=== PATIENT | female | born 1960 | race Caucasian/White ===

== ENCOUNTER → 2018-08-24 | Emergency (ER) | payer MEDICAID ==
[~2018-08-24] MED LIST: ALLO100T PO; AMLO10TA6 PO; ARIP5TAB19 PO; ASPI-1005 PO; BUPR300T54 PO; CLON0.5T12 PO; ESOM40CA54 PO; FERR324T4 PO; IBUP-2071 PO; ISOS20TA7 PO; KETOROLAC TROMETHAMINE 30MG/ML ONE; LEVO150T11 PO; LORA10TA7 PO; MECL-111 PO; MELO-106 PO; METO5TAB7 PO; NITR0.4T50 SL; PREG100C PO; ROPI1TAB11 PO; SERT50TA12 PO; SIMV40TA5 PO; TORS5TAB12 PO; TRAM50TA4 PO; TRAZ-187 PO
== END ==
LOC: EDH 22:49 → EDHIP 22:50 → UNDOADMIN 22:50 → UNDODISIN 23:59
DX: S80.02XA Contusion of left knee, initial encounter (principal); S80.01XA Contusion of right knee, initial encounter; S70.12XA Contusion of left thigh, initial encounter; S70.01XA Contusion of right hip, initial encounter; S09.90XA Unspecified injury of head, initial encounter; E11.9 Type 2 diabetes mellitus without complications; E78.5 Hyperlipidemia, unspecified; I10 Essential (primary) hypertension; M19.90 Unspecified osteoarthritis, unspecified site; F32.9 Major depressive disorder, single episode, unspecified; Z90.49 Acquired absence of other specified parts of digestive tract; Z85.850 Personal history of malignant neoplasm of thyroid; W07.XXXA Fall from chair, initial encounter; Y93.E1 Activity, personal bathing and showering; Y92.89 Other specified places as the place of occurrence of the external cause; Y99.8 Other external cause status
CPT/HCPCS: 70450; 73502; 73562; 96372; G0378; J1885

== ENCOUNTER 2018-10-10 18:24 | Inpatient (IN) | payer MEDICAID ==
[~2018-10-10] VITALS: Ht 152.4 cm; Wt 96.3 kg
[~2018-10-10 18:24] MED LIST changes: -AMLO10TA6 PO; +AMLO10TA7 PO; -KETOROLAC TROMETHAMINE 30MG/ML ONE
[2018-10-10 18:55] LABS: BASOPHILS % (AUTO) 1.3 % (0.0-5.0); EOSINOPHILS % (AUTO) 3.3 % (0.0-8.0); HEMATOCRIT 30.7 % (36-48); LYMPHOCYTES % (AUTO) 24.6 % (21.0-51.0); MEAN CORPUSCULAR HEMOGLOBIN 30.6 pg (27.0-33.0); MEAN CORPUSCULAR HGB CONC 33.3 g/dL (32.0-36.0); MEAN CORPUSCULAR VOLUME 91.7 fL (79-99); MONOCYTES % (AUTO) 5.3 % (3.0-13.0); NEUTROPHILS % (AUTO) 65.5 % (40.0-77.0); PLATELET COUNT (AUTO) 274 K/uL (130-400); RED BLOOD CELL COUNT(AUTO) 3.35 MIL/uL (4.00-5.50); RED CELL DISTRIBUTION WIDTH 13.7 % (11.0-15.5); WHITE BLOOD COUNT (AUTO) 12.1 K/uL (4.8-10.8)
[2018-10-10 19:06] LABS: CREATININE 4.2 mg/dL (0.5-1.5); POTASSIUM 5.9 mmol/L (3.5-5.1)
[2018-10-10 19:08] LABS: INR 0.95 (0.85-1.15)
[2018-10-10 19:16] LABS: ALBUMIN 3.1 g/dL (3.5-5.0); BILIRUBIN,TOTAL 0.1 mg/dL (0.2-1.0); TOTAL PROTEIN, SERUM 6.8 g/dL (6.0-8.3)
[2018-10-10 19:22] LABS: B-TYPE NATRIURETIC PEPTIDE 509 pg/mL (0-100)
[2018-10-10] MEDS ORDERED: SODIUM CHLORIDE 0.9% 1000ML 1,000 ML IV ONE (19:28)
[2018-10-10 19:39] LABS: THYROID STIMULATING HORMONE 13.36 uIU/mL (0.36-3.74)
[2018-10-10 20:32] LABS: APPEARANCE,URINE Clear (CLEAR); BILIRUBIN,URINE Negative (NEGATIVE); COLOR,URINE Dark Yellow (YELLOW); GLUCOSE, URINE (UA) Negative (NEGATIVE); KETONES,URINE Trace mg/dL (NEGATIVE); LEUKOCYTE ESTERASE ,URINE Negative (NEGATIVE); NITRATE,URINE Negative (NEGATIVE); OCCULT BLOOD,URINE Negative (NEGATIVE); PROTEIN,URINE Negative (NEGATIVE)
[2018-10-10] MEDS ORDERED: ATROPINE SULFATE 0.1 MG/ML 10 ML SYG IVP ONE (20:39)
[2018-10-10] MEDS ORDERED: CALCIUM GLUCONATE 1 GM/10 ML VIAL IV ONE (20:39)
[2018-10-11 06:17] LABS: EOSINOPHILS % (AUTO) 3.2 % (0.0-8.0); HEMATOCRIT 32.2 % (36-48); MEAN CORPUSCULAR HEMOGLOBIN 30.4 pg (27.0-33.0); MEAN CORPUSCULAR HGB CONC 32.9 g/dL (32.0-36.0); MEAN CORPUSCULAR VOLUME 92.3 fL (79-99); MONOCYTES % (AUTO) 5.9 % (3.0-13.0); NEUTROPHILS % (AUTO) 65.9 % (40.0-77.0); PLATELET COUNT (AUTO) 249 K/uL (130-400); RED BLOOD CELL COUNT(AUTO) 3.49 MIL/uL (4.00-5.50); RED CELL DISTRIBUTION WIDTH 13.7 % (11.0-15.5); WHITE BLOOD COUNT (AUTO) 11.9 K/uL (4.8-10.8)
[2018-10-11 06:30] LABS: CREATININE 4.6 mg/dL (0.5-1.5)
[2018-10-11 06:35] LABS: POTASSIUM 6.4 mmol/L (3.5-5.1)
[2018-10-11] MEDS ORDERED: HYDROCHLOROTHIAZIDE 25 MG TABLET ONE (09:44)
[2018-10-11] MEDS ORDERED: FUROSEMIDE 10 MG/ML 4ML VIAL ONE (09:44)
[2018-10-11] MEDS ORDERED: HYDROCHLOROTHIAZIDE 25 MG TABLET PO SCH (09:45)
[2018-10-11] MEDS ORDERED: FUROSEMIDE 10 MG/ML 4ML VIAL IV SCH (09:45)
[2018-10-11] MEDS ORDERED: SODIUM CHLORIDE 0.9% 1000ML 1,000 ML IV ONE (20:23)
[2018-10-11] MEDS: SIMVASTATIN 20 MG TABLET PO SCH (21:00)
[2018-10-12] VITALS (7 sets, daily range): BP systolic 139–168; BP diastolic 60–139
[2018-10-12] MEDS: SODIUM CHLORIDE 0.9% 1000ML 1,000 ML IV SCH ×3 (01:56→13:03)
[2018-10-12] MEDS ORDERED: XALA2.5OS OD (02:52)
[2018-10-12] MEDS ORDERED: LATA7.5D OP (02:52)
[2018-10-12] MEDS ORDERED: AMOX-429 PO (02:52)
[2018-10-12] MEDS ORDERED: CHOL200059 PO (02:52)
[2018-10-12] MEDS ORDERED: FERR-82 PO (02:52)
[2018-10-12] MEDS ORDERED: METF-446 PO (02:52)
[2018-10-12] MEDS ORDERED: TORS20TA4 PO (02:52)
[2018-10-12] MEDS ORDERED: BRIM5DRO OP (02:52)
[2018-10-12] MEDS ORDERED: DIPH1TAB24 PO (02:52)
[2018-10-12] MEDS ORDERED: ARIP10TA16 PO (02:52)
[2018-10-12 04:00] LABS: HEMATOCRIT 33.4 % (36-48); MEAN CORPUSCULAR HEMOGLOBIN 30.8 pg (27.0-33.0); MEAN CORPUSCULAR HGB CONC 34.4 g/dL (32.0-36.0); MEAN CORPUSCULAR VOLUME 89.5 fL (79-99); PLATELET COUNT (AUTO) 253 K/uL (130-400); RED BLOOD CELL COUNT(AUTO) 3.74 MIL/uL (4.00-5.50); RED CELL DISTRIBUTION WIDTH 13.2 % (11.0-15.5)
[2018-10-12 04:16] LABS: CREATININE 2.3 mg/dL (0.5-1.5); PHOSPHORUS 4.7 mg/dL (2.5-4.9); POTASSIUM 4.2 mmol/L (3.5-5.1)
[2018-10-12 04:34] LABS: BASOPHILS % (MANUAL) 1 % (0-2); EOSINOPHILS % (MANUAL) 4 % (1-6); LYMPHOCYTES % (MANUAL) 17 % (22-44); MAN.DIFF COMMENT-IMPRESSION MANUAL DIFFERENTIAL; MONOCYTES % (MANUAL) 5 % (2-9); PLATELET MORPHOLOGY COMMENT ADEQUATE; REACTIVE LYMPHOCYTES 2 % (0-0); SEGMENTED NEUTROPHILS % 71 % (40-70)
[2018-10-12] MEDS: LEVOTHYROXINE 150 MCG TABLET PO SCH (06:41)
[2018-10-12] MEDS: PANTOPRAZOLE SODIUM 40 MG TABLET.DR PO SCH (06:41)
[2018-10-12] MEDS: ASPIRIN 81MG TAB.CHEW PO SCH (08:04)
[2018-10-12] MEDS: SERTRALINE HCL 50 MG TABLET PO SCH (08:05)
[2018-10-12] MEDS: ALLOPURINOL 100 MG TABLET PO SCH (08:05)
[2018-10-12 14:51] LABS: APPEARANCE,URINE CLOUDY (CLEAR); BILIRUBIN,URINE NEGATIVE (NEGATIVE); COLOR,URINE YELLOW (YELLOW); GLUCOSE, URINE (UA) NEGATIVE (NEGATIVE); KETONES,URINE 5 mg/dL (NEGATIVE); LEUKOCYTE ESTERASE ,URINE MODERATE (NEGATIVE); NITRATE,URINE POSITIVE (NEGATIVE); OCCULT BLOOD,URINE MODERATE (NEGATIVE); PROTEIN,URINE TRACE (NEGATIVE); UROBILINOGEN,URINE 0.2 mg/dL (0.2-1.0)
[2018-10-12 16:00] LABS: BACTERIA,URINE Few /HPF (None Seen); SQUAMOUS EPITHELIAL CELL,UR Rare /HPF (0-2); WBC,URINE 26-50 /HPF (0-1)
[2018-10-12] MEDS: SIMVASTATIN 20 MG TABLET PO SCH (21:24)
[2018-10-12] MEDS: INSULIN HUMULIN R 100 UNIT/ML 3ML SQ SCH (21:28)
[2018-10-13 04:00] VITALS: BP 170/94
[2018-10-13 04:35] LABS: HEMATOCRIT 37.1 % (36-48); MEAN CORPUSCULAR HEMOGLOBIN 30.6 pg (27.0-33.0); MEAN CORPUSCULAR HGB CONC 34.2 g/dL (32.0-36.0); MEAN CORPUSCULAR VOLUME 89.4 fL (79-99); NUCLEATED RED BLOOD CELLS 0.1 % (0.0-0.19); PLATELET COUNT (AUTO) 287 K/uL (130-400); RED BLOOD CELL COUNT(AUTO) 4.15 MIL/uL (4.00-5.50); RED CELL DISTRIBUTION WIDTH 13.4 % (11.0-15.5); WHITE BLOOD COUNT (AUTO) 10.5 K/uL (4.8-10.8)
[2018-10-13 05:03] LABS: CREATININE 1.4 mg/dL (0.5-1.5); POTASSIUM 3.5 mmol/L (3.5-5.1); THYROID STIMULATING HORMONE 10.17 uIU/mL (0.36-3.74); URIC ACID 6.3 mg/dL (2.6-7.2)
[2018-10-13] MEDS: LEVOTHYROXINE 150 MCG TABLET PO SCH (06:06)
[2018-10-13] MEDS: PANTOPRAZOLE SODIUM 40 MG TABLET.DR PO SCH (06:06)
[2018-10-13 07:00] VITALS: BP 156/73
[2018-10-13] MEDS: INSULIN HUMULIN R 100 UNIT/ML 3ML SQ SCH ×4 (07:04→21:00)
[2018-10-13] MEDS: SERTRALINE HCL 50 MG TABLET PO SCH (08:06)
[2018-10-13] MEDS: ASPIRIN 81MG TAB.CHEW PO SCH (08:07)
[2018-10-13] MEDS: ALLOPURINOL 100 MG TABLET PO SCH (08:07)
[2018-10-13 11:00] VITALS: BP 168/71
[2018-10-13 16:00] VITALS: BP 184/71
[2018-10-13 20:06] VITALS: BP 162/78
[2018-10-13] MEDS: SIMVASTATIN 20 MG TABLET PO SCH (20:36)
[2018-10-13] MEDS ORDERED: ROPINIROLE HCL 1 MG TABLET PO SCH (21:00)
[2018-10-13 23:48] VITALS: BP 164/61
[2018-10-14 03:39] VITALS: BP 161/73
[2018-10-14 04:12] LABS: HEMATOCRIT 38.3 % (36-48); MEAN CORPUSCULAR HEMOGLOBIN 30.2 pg (27.0-33.0); MEAN CORPUSCULAR HGB CONC 33.9 g/dL (32.0-36.0); MEAN CORPUSCULAR VOLUME 89.2 fL (79-99); PLATELET COUNT (AUTO) 321 K/uL (130-400); RED CELL DISTRIBUTION WIDTH 13.5 % (11.0-15.5); WHITE BLOOD COUNT (AUTO) 13.4 K/uL (4.8-10.8)
[2018-10-14 04:18] LABS: CREATININE 1.3 mg/dL (0.5-1.5); POTASSIUM 3.7 mmol/L (3.5-5.1)
[2018-10-14] MEDS: INSULIN HUMULIN R 100 UNIT/ML 3ML SQ SCH ×2 (06:20→12:22)
[2018-10-14] MEDS: LEVOTHYROXINE 150 MCG TABLET PO SCH (06:20)
[2018-10-14] MEDS: PANTOPRAZOLE SODIUM 40 MG TABLET.DR PO SCH (06:20)
[2018-10-14 07:00] VITALS: BP 166/77
[2018-10-14] MEDS: ASPIRIN 81MG TAB.CHEW PO SCH (08:54)
[2018-10-14] MEDS: SERTRALINE HCL 50 MG TABLET PO SCH (08:54)
[2018-10-14] MEDS: ALLOPURINOL 100 MG TABLET PO SCH (08:54)
[2018-10-14] MEDS ORDERED: BUPROPION HCL 150 MG TABLET.SA PO SCH (09:00)
[2018-10-14] MEDS ORDERED: FERROUS SULFATE 325 MG TABLET.DR PO SCH (09:00)
[2018-10-14] MEDS ORDERED: AMLODIPINE BESYLATE 5 MG TAB PO SCH (09:00)
[2018-10-14] MEDS ORDERED: ISOSORBIDE MONONITRATE 20 MG TABLET PO SCH (09:00)
[2018-10-14 11:00] VITALS: BP 131/57
== END 2018-10-14 14:39 | disposition home or self-care (01) | DRG 469 ==
LOC: EDH 18:24 → EDHIP 18:25 → 2DH 10-12 01:32
PROVIDERS: ADMIT Internal Medicine Nephrology; ATTEND Internal Medicine Nephrology
DX: N17.9 Acute kidney failure, unspecified (principal); E11.22 Type 2 diabetes mellitus with diabetic chronic kidney disease; E86.9 Volume depletion, unspecified; I12.9 Hypertensive chronic kidney disease with stage 1 through stage 4 chronic kidney disease, or unspecified chronic kidney disease; E87.5 Hyperkalemia; N18.9 Chronic kidney disease, unspecified; D64.9 Anemia, unspecified; E03.9 Hypothyroidism, unspecified; E78.5 Hyperlipidemia, unspecified; F32.9 Major depressive disorder, single episode, unspecified; F41.9 Anxiety disorder, unspecified; I25.10 Atherosclerotic heart disease of native coronary artery without angina pectoris
CPT/HCPCS: 36415; 70450; 71045; 76770; 80048; 80053; 81001; 81003; 82550; 82948; 83735; 83874; 83880; 84100; 84443; 84484; 84550; 85025; 85027; 85610; 85730; 93005; G0378; J0461; J0610; J1815; J1940; J7030

== ENCOUNTER 2019-05-24 09:58 | Emergency (ER) | payer MEDICAID ==
[~2019-05-24 09:58] MED LIST changes: +AMOX-429 PO; +ARIP10TA16 PO; -ARIP5TAB19 PO; +BRIM5DRO OP; +CHOL200059 PO; -CLON0.5T12 PO; +CLON0.5T4 PO; +DIPH1TAB24 PO; +FERR-82 PO; -FERR324T4 PO; -IBUP-2071 PO; +LATA7.5D OP; -MELO-106 PO; +METF-446 PO; -METO5TAB7 PO; -PREG100C PO; +SIMV-46 PO; -SIMV40TA5 PO; +TORS20TA4 PO; -TORS5TAB12 PO; +XALA2.5OS OD
[2019-05-24 11:00] LABS: CARBON DIOXIDE 27 mmol/L (21-32); CHLORIDE 103 mmol/L (101-111); CREATININE 1.4 mg/dL (0.5-1.5); GLOMERULAR FILTR. RATE CALC 41 mL/min (>60); GLUCOSE,RANDOM 150 mg/dL (70-105); POTASSIUM 4.6 mmol/L (3.5-5.1); SODIUM SERUM 139 mmol/L (136-145); UREA NITROGEN, BLOOD 28 mg/dL (7-18)
[2019-05-24 11:02] LABS: BASOPHILS % (AUTO) 0.8 % (0.0-5.0); EOSINOPHILS % (AUTO) 3.5 % (0.0-8.0); LYMPHOCYTES % (AUTO) 18.4 % (21.0-51.0); MEAN CORPUSCULAR HEMOGLOBIN 30.8 pg (27.0-33.0); MEAN CORPUSCULAR HGB CONC 34.2 g/dL (32.0-36.0); MEAN CORPUSCULAR VOLUME 90.1 fL (79-99); MONOCYTES % (AUTO) 6.2 % (3.0-13.0); NEUTROPHILS % (AUTO) 71.1 % (40.0-77.0); PLATELET COUNT (AUTO) 333 K/uL (130-400); RED BLOOD CELL COUNT(AUTO) 3.55 MIL/uL (4.00-5.50); RED CELL DISTRIBUTION WIDTH 13.2 % (11.0-15.5); WHITE BLOOD COUNT (AUTO) 11.1 K/uL (4.8-10.8)
[2019-05-24 11:05] LABS: ALANINE AMINOTRANSFERASE 17 U/L (12-78); ASPARTATE AMINOTRANSFERASE 13 U/L (10-37); BILIRUBIN,DIRECT < 0.1 mg/dL (0.0-0.3); BILIRUBIN,TOTAL 0.2 mg/dL (0.2-1.0); CREATINE KINASE, TOTAL 40 U/L (21-232)
[2019-05-24 11:16] LABS: B-TYPE NATRIURETIC PEPTIDE 45 pg/mL (0-100)
== END 2019-05-24 12:54 | disposition home or self-care (01) ==
LOC: EDH 09:58
DX: R22.31 Localized swelling, mass and lump, right upper limb (principal); M19.90 Unspecified osteoarthritis, unspecified site; E11.9 Type 2 diabetes mellitus without complications; E78.5 Hyperlipidemia, unspecified; F32.9 Major depressive disorder, single episode, unspecified; I10 Essential (primary) hypertension; F41.9 Anxiety disorder, unspecified; Z85.850 Personal history of malignant neoplasm of thyroid
CPT/HCPCS: 36415; 71046; 73130; 80048; 80076; 82550; 83880; 84145; 85025; 93971

== ENCOUNTER → 2019-07-22 | Outpatient (CLI) | payer MEDICAID | END | disposition home or self-care (01) | LOC: SLP 19:07 | DX: G47.33 Obstructive sleep apnea (adult) (pediatric) (principal); I10 Essential (primary) hypertension; E11.9 Type 2 diabetes mellitus without complications; E66.9 Obesity, unspecified; F32.9 Major depressive disorder, single episode, unspecified; F41.9 Anxiety disorder, unspecified; Z68.41 Body mass index [BMI] 40.0-44.9, adult | CPT/HCPCS: 95810 ==

== ENCOUNTER → 2019-08-07 | Outpatient (CLI) | payer MEDICAID | END | disposition home or self-care (01) | LOC: SLP 20:29 | DX: G47.33 Obstructive sleep apnea (adult) (pediatric) (principal); I10 Essential (primary) hypertension; E11.9 Type 2 diabetes mellitus without complications; F41.9 Anxiety disorder, unspecified; F32.9 Major depressive disorder, single episode, unspecified; E66.9 Obesity, unspecified; Z68.41 Body mass index [BMI] 40.0-44.9, adult | CPT/HCPCS: 95811 ==

== ENCOUNTER 2019-11-29 09:16 | Inpatient (IN) | payer MEDICAID ==
[~2019-11-29] VITALS: Ht 152.4 cm; Wt 95.2 kg
[~2019-11-29 09:16] MED LIST changes: +AMLO-258 PO; -AMLO10TA7 PO; +BUPR-317 PO; -BUPR300T54 PO; -MECL-111 PO; +MECL-160 PO; -ROPI1TAB11 PO; +ROPI1TAB13 PO
[2019-11-29 09:47] LABS: BASOPHILS % (AUTO) 0.3 % (0.0-5.0); HEMATOCRIT 32.3 % (36-48); LYMPHOCYTES % (AUTO) 16.5 % (21.0-51.0); MEAN CORPUSCULAR VOLUME 96.7 fL (79-99); MONOCYTES % (AUTO) 7.9 % (3.0-13.0); NEUTROPHILS % (AUTO) 73.2 % (40.0-77.0); NUCLEATED RED BLOOD CELLS 0.1 % (0.0-0.19); PLATELET COUNT (AUTO) 368 K/uL (130-400); RED BLOOD CELL COUNT(AUTO) 3.34 MIL/uL (4.00-5.50); RED CELL DISTRIBUTION WIDTH 14.5 % (11.0-15.5); WHITE BLOOD COUNT (AUTO) 17.5 K/uL (4.8-10.8)
[2019-11-29 09:55] LABS: INR 0.92 (0.85-1.15); PARTIAL THROMBOPLASTIN TIME 20.6 SEC (26.3-35.5)
[2019-11-29 10:04] LABS: ALBUMIN 3.3 g/dL (3.5-5.0); BILIRUBIN,TOTAL 0.2 mg/dL (0.2-1.0); CREATININE 4.7 mg/dL (0.5-1.5); TOTAL PROTEIN, SERUM 7.2 g/dL (6.0-8.3)
[2019-11-29 10:05] LABS: POTASSIUM 6.6 mmol/L (3.5-5.1)
[2019-11-29 10:18] LABS: B-TYPE NATRIURETIC PEPTIDE 910 pg/mL (0-100)
[2019-11-29 10:25] LABS: RAPID GROUP A STREP NEGATIVE (NEGATIVE)
[2019-11-29] MEDS ORDERED: IPRATROPIUM/ALBUTEROL SULFATE 3 ML SOLUTION IH ONE ×2 (10:47→10:54)
[2019-11-29] MEDS ORDERED: FUROSEMIDE 10 MG/ML 4ML VIAL ONE (10:52)
[2019-11-29] MEDS ORDERED: DEXTROSE 50%-WATER 50 ML DISP.SYRIN IV ONE (11:38)
[2019-11-29] MEDS ORDERED: INSULIN HUMULIN R 100 UNIT/ML 3ML ONE (11:38)
[2019-11-29] MEDS ORDERED: SODIUM POLYSTYRENE SULFONATE 15 GM/60 ML ML ONE ×2 (13:25)
[2019-11-29 13:35] LABS: APPEARANCE,URINE Turbid (CLEAR); BILIRUBIN,URINE Negative (NEGATIVE); COLOR,URINE Yellow (YELLOW); GLUCOSE, URINE (UA) Negative (NEGATIVE); KETONES,URINE Negative (NEGATIVE); LEUKOCYTE ESTERASE ,URINE Trace (NEGATIVE); NITRATE,URINE Negative (NEGATIVE); OCCULT BLOOD,URINE Moderate (NEGATIVE); PROTEIN,URINE 300 mg/dL (NEGATIVE)
[2019-11-29 14:08] LABS: AMORPHOUS SEDIMENT,UR Moderate /LPF (None Seen); BACTERIA,URINE Few /HPF (None Seen); MUCUS,URINE Few LPF (None Seen); WBC,URINE 0-1 /HPF (0-1)
[2019-11-29] MEDS ORDERED: CEFTRIAXONE SODIUM 1 GM ONE (14:30)
[2019-11-29 19:00] VITALS: BP 130/63
--- NOTE | 2019-11-29 19:25 | NUR ---
ARRIVED AT TELE ROOM 230 VIA STRETCHER. PT DENIES ANY PAIN BUT DOES HAVE MILD HEADACHE. PT IS SHAKING HER LEGS, DENIES ANXIETY, STATES SHE ALWAYS MOVES HER LEGS. DENIES CHEST PAIN. 4L VIA NC, PT EXPERIENCING SOB WHEN ANSWERING QUESTIONS. EDEMA TO UPPER BODY AND EXTREMITIES, NO EDEMA TO LOWER EXTREMITIES. BED TO LOWEST LEVEL. CALL LIGHT WITHIN. SINUS SAMMI 58 BP 130/63
[2019-11-29] MEDS ORDERED: TORS20TA4 PO (21:37)
[2019-11-29] MEDS ORDERED: LEVO200T10 PO (21:40)
[2019-11-29] MEDS ORDERED: MECL-160 PO (21:49)
[2019-11-29] MEDS ORDERED: LISI-613 PO (21:51)
[2019-11-29] MEDS ORDERED: GABA-529 PO (21:51)
[2019-11-29] MEDS ORDERED: MIRT30TA2 PO (21:54)
[2019-11-29] MEDS ORDERED: ACET650T9 PO (21:55)
--- NOTE | 2019-11-29 22:25 | NUR ---
TELE MONITOR INFORMED OF PT HAVING SINUS WITH JUNCTIONALS IN THE 80s. PT DENIES ANY CHEST PAIN. DR RODRIGUEZ WAS PAGED.
[2019-11-29 23:00] VITALS: BP 152/61
[2019-11-30] VITALS (23 sets, daily range): BP systolic 131–170; BP diastolic 64–110
[2019-11-30] MEDS: FUROSEMIDE 10 MG/ML 4ML VIAL IVP SCH ×3 (00:22→21:30)
[2019-11-30] MEDS: SODIUM POLYSTYRENE SULFONATE 15 GM/60 ML ML PO NR ×2 (00:22→03:13)
[2019-11-30] MEDS: CEFTRIAXONE SODIUM 1 GM IVP SCH ×2 (00:22→14:08)
--- NOTE | 2019-11-30 00:30 | NUR ---
AFTER THE 4TH ATTEMPT TO CONTACT DR RODRIGUEZ, SPOKE TO MICHAEL AND HE ORDERED STAT BMP, 1 GM OF CALCIUM GLUCONATE, 5 UNITS OF REGULAR INSULIN, 1 AMP OF D50, AND LOKELMA 10GM x 1 DOSE.
[2019-11-30] MEDS: DEXTROSE 50%-WATER 25 GM/50 ML VIAL IV SCH (00:45)
[2019-11-30] MEDS ORDERED: INSULIN HUMULIN R 100 UNIT/ML 3ML IV SCH (00:45)
[2019-11-30] MEDS ORDERED: CALCIUM GLUCONATE 1 GM in SODIUM CHLORIDE 0.9% 100 ML IV SCH (00:45)
[2019-11-30] MEDS ORDERED: INSULIN HUMULIN R 100 UNIT/ML 3ML SQ SCH (00:45)
[2019-11-30] MEDS ORDERED: CALCIUM GLUCONATE 1 GM/10 ML VIAL IV ONE ×2 (00:57→02:14)
[2019-11-30] MEDS ORDERED: DEXTROSE 50%-WATER 50 ML DISP.SYRIN IV ONE ×2 (00:58→02:14)
[2019-11-30] MEDS ORDERED: SODIUM CHLORIDE 0.9% 100 ML IV ONE ×2 (00:58→04:13)
[2019-11-30] MEDS ORDERED: INSULIN HUMULIN R 100 UNIT/ML 3ML ONE (01:02)
[2019-11-30 01:22] LABS: POTASSIUM 7.7 mmol/L (3.5-5.1)
--- NOTE | 2019-11-30 01:25 | NUR ---
PACHECO FROM LAB CALLED, POTASSIUM LEVEL AT 7.7, BUN 99, CREATININE 6.0, INFORMED DR RODRIGUEZ, NEW ORDERS TO TRANSFER TO ICU, CONTACT [facility], START CATHETER LINE FOR DIALYSIS TAMAR. PT HAS NOT VOIDED ONLY HAS ABOUT 20ML OF URINE IN [place].
--- NOTE | 2019-11-30 01:37 | NUR ---
SPOKE TO PHARMACIST FROM [place] TO ASK FOR THE KELUT MEDICATION. THEY DO NOT CARRY IT, CALLED AND ASKED DR RODRIGUEZ AGAIN AND HE STATED OUR PHARMACY HAS IT PUT AWAY. SPOKE TO TIRE GROOVER AND SHE WILL CONTACT [facility] JEWISH HISTORY PROFESSOR.
--- NOTE | 2019-11-30 01:45 | NUR ---
SPOKE TO KAHLIL IBANEZ, NEW ORDERS FOR 2GMS CALCIUM GLUCONATE, 10 UNITS OF INSULIN, 1 AMP OF D50, 1 AMP OF SODIUM BICARB, TRANSFER TO ICU, START INSULIN DRIP D10W AT 100ML/HR, GLUCOMETER CHECKS Q HOUR ONCE STARTED.
--- NOTE | 2019-11-30 02:00 | NUR ---
PT AT SINUS WITH PACs 70s, DENIES ANY CHEST PAIN.
[2019-11-30] MEDS ORDERED: SODIUM CHLORIDE 0.9% 200 ML IV ONE (02:14)
[2019-11-30] MEDS ORDERED: SODIUM BICARB 50MEQ 50ML VIAL ONE (02:14)
[2019-11-30] MEDS ORDERED: ALBUTEROL SULFATE 0.083% 2.5 MG/3 ML INH IH ONE ×4 (02:14→02:15)
[2019-11-30] MEDS ORDERED: SODIUM ZIRCONIUM CYCLOSILICATE 10 GM POWD.PACK PO NR ×2 (02:30→09:45)
--- NOTE | 2019-11-30 03:00 | NUR ---
PT AT SINUS RHYTHM 80s
[2019-11-30] MEDS: SODIUM POLYSTYRENE SULFONATE 15 GM/60 ML ML PO SCH (03:15)
[2019-11-30] MEDS ORDERED: SODIUM CHLORIDE 0.9% 1000ML 1,000 ML IV SCH (03:15)
[2019-11-30] MEDS ORDERED: SODIUM CHLORIDE 0.9% 1000ML 1,000 ML IV ONE (03:22)
[2019-11-30] MEDS ORDERED: DEXTROSE 50%-WATER 50 ML DISP.SYRIN IV PRN (03:30)
[2019-11-30] MEDS ORDERED: INSULIN REGULAR, HUMAN 3ML 100 UNIT in SODIUM CHLORIDE 0.9% 99 ML IV SCH ×2 (03:30)
[2019-11-30] MEDS ORDERED: SODIUM BICARB 8.4% 50ML SYRINGE IV PRN (03:30)
[2019-11-30] MEDS: DEXTROSE 10%-WATER 1,000 ML IV SCH ×2 (03:30→12:47)
[2019-11-30] MEDS ORDERED: SODIUM CHLORIDE 0.9% 10 ML VIAL IVP PRN (03:30)
[2019-11-30] MEDS ORDERED: GLUCAGON 1MG KIT 1 MG ML IM PRN (03:30)
[2019-11-30] MEDS ORDERED: FUROSEMIDE 10 MG/ML 4ML VIAL IV SCH ×2 (03:45→04:45)
[2019-11-30 03:50] LABS: ABG BASE EXCESS -7.7 mmol/L (-2.0-3.0); ABG PCO2 44 mmHg (32-45)
--- NOTE | 2019-11-30 04:00 | NUR ---
assumed care for patient received report from MARISSA Ruiz informed me of patient current status and orders received from Odin Muir and Gracia clay Oral Surgeon patient is [id number] , vss, in no apparent distress and denies pain currently [address] with scant amount of yellow urine
--- NOTE | 2019-11-30 04:00 | NUR ---
GAVE REPORT TO ELAINE RN, TRANSFERRED PT TO ICU VIA STRETCHER, PT DENIES CHEST PAIN. OZ VIA NC 3L 98%
[2019-11-30 04:01] LABS: HEMATOCRIT 27.7 % (36-48); MEAN CORPUSCULAR HEMOGLOBIN 29.2 pg (27.0-33.0); MEAN CORPUSCULAR VOLUME 93.9 fL (79-99); NUCLEATED RED BLOOD CELLS 0.1 % (0.0-0.19); PLATELET COUNT (AUTO) 291 K/uL (130-400); RED BLOOD CELL COUNT(AUTO) 2.95 MIL/uL (4.00-5.50); RED CELL DISTRIBUTION WIDTH 14.6 % (11.0-15.5); WHITE BLOOD COUNT (AUTO) 15.3 K/uL (4.8-10.8)
[2019-11-30 04:13] LABS: INR 0.96 (0.85-1.15); PROTHROMBIN TIME 10.4 SEC (9.6-11.6)
[2019-11-30 04:14] LABS: CREATININE 6.3 mg/dL (0.5-1.5); PHOSPHORUS 7.6 mg/dL (2.5-4.9)
[2019-11-30 04:17] LABS: BAND NEUTROPHILS % (MANUAL) 7 % (0-2); LYMPHOCYTES % (MANUAL) 15 % (22-44); MAN.DIFF COMMENT-IMPRESSION MANUAL DIFFERENTIAL; MONOCYTES % (MANUAL) 2 % (2-9); PLATELET MORPHOLOGY COMMENT ADEQUATE; SEGMENTED NEUTROPHILS % 76 % (40-70)
--- NOTE | 2019-11-30 04:27 | NUR ---
[facility] RECENT LAB REPORTS AND PT. STATUS REPORTED TO VENICE DOUGLASS. ORDERS RECEIVED
[2019-11-30] MEDS ORDERED: DEXTROSE 10%-WATER 1,000 ML IV SCH (04:30)
[2019-11-30] MEDS ORDERED: INSULIN REGULAR, HUMAN 3ML 100 UNIT in SODIUM CHLORIDE 0.9% 99 ML IV PRN ×2 (04:30)
[2019-11-30] MEDS: ALBUTEROL SULFATE 0.083% 2.5 MG/3 ML INH IH SCH ×5 (06:20→22:52)
[2019-11-30] MEDS ORDERED: SODIUM BICARB 50MEQ 50ML VIAL IV SCH (07:08)
[2019-11-30] MEDS ORDERED: SODIUM BICARB 8.4% 50ML SYRING 150 MEQ in DEXTROSE 5%-WATER 1,000 ML IV SCH (07:15)
[2019-11-30] MEDS ORDERED: PHARMACY COMMUNICATION MISC SCH (09:30)
--- NOTE | 2019-11-30 15:40 | NUR ---
CHART REVIEWED NOTED RENAL FAILURE NOTED SHORTNESS OF BREATH ON BIPAP, DEFERERD IA AT THIS TIME DEFERRED CALL TO FAMILY AT THIS TIME . ACF CREATED - UPLOADED Addendum: 11/30/19 at 1541 by ALEXX PENALOZA RN CM Amended: Links added.
[2019-11-30] MEDS: INSULIN HUMULIN R 100 UNIT/ML 3ML SQ SCH ×2 (16:21→21:00)
[2019-12-01] VITALS (12 sets, daily range): BP systolic 113–188; BP diastolic 49–89
[2019-12-01] MEDS: DEXTROSE 50%-WATER 25 GM/50 ML VIAL IV SCH (00:31)
[2019-12-01] MEDS: ALBUTEROL SULFATE 0.083% 2.5 MG/3 ML INH IH SCH ×5 (02:36→21:37)
[2019-12-01] MEDS: SODIUM POLYSTYRENE SULFONATE 15 GM/60 ML ML PO SCH ×2 (03:15→03:56)
[2019-12-01 04:09] LABS: HEMATOCRIT 26.5 % (36-48); MEAN CORPUSCULAR HEMOGLOBIN 28.5 pg (27.0-33.0); MEAN CORPUSCULAR HGB CONC 30.9 g/dL (32.0-36.0); PLATELET COUNT (AUTO) 277 K/uL (130-400); RED BLOOD CELL COUNT(AUTO) 2.88 MIL/uL (4.00-5.50); RED CELL DISTRIBUTION WIDTH 14.3 % (11.0-15.5); WHITE BLOOD COUNT (AUTO) 14.2 K/uL (4.8-10.8)
[2019-12-01 04:32] LABS: CREATININE 6.6 mg/dL (0.5-1.5); MAGNESIUM 2.2 mg/dL (1.80-2.40); PHOSPHORUS 8.6 mg/dL (2.5-4.9); POTASSIUM 4.9 mmol/L (3.5-5.1)
[2019-12-01] MEDS: INSULIN HUMULIN R 100 UNIT/ML 3ML SQ SCH ×4 (07:30→21:00)
[2019-12-01] MEDS: FUROSEMIDE 10 MG/ML 4ML VIAL IVP SCH (08:20)
--- NOTE | 2019-12-01 10:45 | NUR ---
TRANSFER REPORT GIVEN TO ANA ROSA WHEATLEY AT THIS TIME. PATIENT READY TO BE TRANSFERRED TO ROOM 310.
--- NOTE | 2019-12-01 12:11 | NUR ---
INITIAL SW spoke with patient. Patient lives alone. No Home Health but does have PHC [email or web address]. DME: walker with seat, BPM, glucometer (no insulin), shower chair. Patient states she needs help with ADL's and does not drive. She uses [facility] to assist with MD appointments. PCP is Dr. Myla Hung. Pharmacy is [facility] in [place]. DCP is home. Patient may consider placement if recommended by MD. Addendum: 12/01/19 at 1214 by PRUDENCE POWELL SS Amended: Links added.
[2019-12-01] MEDS ORDERED: ACETAMINOPHEN 325 MG TAB PO PRN (13:45)
[2019-12-01] MEDS: CEFTRIAXONE SODIUM 1 GM IVP SCH (14:15)
[2019-12-01] MEDS: SODIUM BICARBONATE 650 MG TAB PO SCH ×2 (14:16→20:13)
[2019-12-01] MEDS: LORAZEPAM 2 MG/ML 1 ML VIAL IVP PRN (18:09)
[2019-12-01] MEDS: FUROSEMIDE 10 MG/ML 2ML VIAL IVP SCH (20:14)
[2019-12-02] MEDS: DEXTROSE 50%-WATER 25 GM/50 ML VIAL IV SCH (00:45)
[2019-12-02] MEDS: SODIUM POLYSTYRENE SULFONATE 15 GM/60 ML ML PO SCH (01:50)
[2019-12-02 03:58] VITALS: BP 154/72
--- NOTE | 2019-12-02 03:59 | NUR ---
STATUS Pt slept well.Denies sob,on 02 at 2lpm via nc.
[2019-12-02] MEDS: INSULIN HUMULIN R 100 UNIT/ML 3ML SQ SCH ×3 (05:45→20:42)
[2019-12-02 06:03] LABS: HEMATOCRIT 28.6 % (36-48); MEAN CORPUSCULAR HEMOGLOBIN 29.4 pg (27.0-33.0); MEAN CORPUSCULAR HGB CONC 31.8 g/dL (32.0-36.0); MEAN CORPUSCULAR VOLUME 92.3 fL (79-99); PLATELET COUNT (AUTO) 289 K/uL (130-400); RED CELL DISTRIBUTION WIDTH 13.9 % (11.0-15.5); WHITE BLOOD COUNT (AUTO) 11.4 K/uL (4.8-10.8)
[2019-12-02] MEDS: ALBUTEROL SULFATE 0.083% 2.5 MG/3 ML INH IH SCH ×3 (06:11→21:13)
[2019-12-02 06:19] LABS: CREATININE 3.8 mg/dL (0.5-1.5); PHOSPHORUS 6.9 mg/dL (2.5-4.9); POTASSIUM 4.2 mmol/L (3.5-5.1)
[2019-12-02 06:26] LABS: % IRON SATURATION 8.4 % (22-44)
[2019-12-02 07:01] LABS: BASOPHILS % (MANUAL) 1 % (0-2); EOSINOPHILS % (MANUAL) 3 % (1-6); LYMPHOCYTES % (MANUAL) 10 % (22-44); MAN.DIFF COMMENT-IMPRESSION MANUAL DIFFERENTIAL; MONOCYTES % (MANUAL) 8 % (2-9); PLATELET MORPHOLOGY COMMENT ADEQUATE; REACTIVE LYMPHOCYTES 1 % (0-0); SEGMENTED NEUTROPHILS % 77 % (40-70)
[2019-12-02 08:00] VITALS: BP 158/70
[2019-12-02] MEDS: FUROSEMIDE 10 MG/ML 2ML VIAL IVP SCH (09:07)
[2019-12-02] MEDS: SODIUM BICARBONATE 650 MG TAB PO SCH (09:07)
[2019-12-02] MEDS ORDERED: COMPOUND IV MISC 1 EACH IVSOLN MISC PRN (09:45)
[2019-12-02 11:45] VITALS: BP 168/69
--- NOTE | 2019-12-02 12:08 | NUR ---
brett franklin at this time.
[2019-12-02] MEDS: CEFTRIAXONE SODIUM 1 GM IVP SCH (13:29)
[2019-12-02] MEDS: IRON SUCROSE COMPLEX 100 MG in SODIUM CHLORIDE 0.9% 50 ML IV SCH (13:30)
[2019-12-02 16:00] VITALS: BP 183/77
--- NOTE | 2019-12-02 16:01 | NUR ---
DISCUSSED O2 ORDER WITH [employer]RI[employer] SERVICER SUPERVISOR THIS MORNING AFTER O2 ORDER PLACED NO CHRONIC LUNG CONDITION IN DOCUMENTATION-? IF PATIENT STILL HAS FLUID OVERLOAD, YOVANI CEDENO QULAIFY UNDER O2 GUIDELINES. WILL NEED DIURESIS/HD TO IMPROVE O2 SATSA. THEN WHEN 'STABLE' CAN BE REASSESSED - IS THERE DOCUMENTATION OF CHRONIC SYSTOLIC CHF/ PULMONARY HYPERTENSION TO QUALIFY FOR OXYGEN CALL TO DR. RODRIGUEZ, NOT YET RETURN Addendum: 12/02/19 at 1605 by ALEXX PENALOZA RN CM Amended: Links added.
--- NOTE | 2019-12-02 19:58 | NUR ---
KIT briceño thru answering service re pt.s elevated bp.
[2019-12-02 20:00] VITALS: BP 196/85
--- NOTE | 2019-12-02 20:39 | NUR ---
MD Dr RODRIGUEZ called back,Norvasc 10 mg po x 1 given.He said he will review home meds in am.
[2019-12-02] MEDS ORDERED: AMLODIPINE BESYLATE 5 MG TAB PO SCH (21:35)
[2019-12-02 23:59] VITALS: BP 156/74
[2019-12-03] MEDS: DEXTROSE 50%-WATER 25 GM/50 ML VIAL IV SCH (00:45)
[2019-12-03] MEDS: SODIUM POLYSTYRENE SULFONATE 15 GM/60 ML ML PO SCH (01:17)
[2019-12-03 04:00] VITALS: BP 174/78
[2019-12-03 05:12] LABS: BASOPHILS % (AUTO) 0.4 % (0.0-5.0); EOSINOPHILS % (AUTO) 2.2 % (0.0-8.0); HEMATOCRIT 31.2 % (36-48); LYMPHOCYTES % (AUTO) 11.4 % (21.0-51.0); MEAN CORPUSCULAR HEMOGLOBIN 28.9 pg (27.0-33.0); MEAN CORPUSCULAR HGB CONC 31.4 g/dL (32.0-36.0); MONOCYTES % (AUTO) 9.5 % (3.0-13.0); NEUTROPHILS % (AUTO) 76.1 % (40.0-77.0); PLATELET COUNT (AUTO) 320 K/uL (130-400); RED BLOOD CELL COUNT(AUTO) 3.39 MIL/uL (4.00-5.50); RED CELL DISTRIBUTION WIDTH 13.9 % (11.0-15.5); WHITE BLOOD COUNT (AUTO) 12.5 K/uL (4.8-10.8)
[2019-12-03 05:27] LABS: CREATININE 2.3 mg/dL (0.5-1.5); PHOSPHORUS 4.6 mg/dL (2.5-4.9); POTASSIUM 3.4 mmol/L (3.5-5.1)
[2019-12-03] MEDS: INSULIN HUMULIN R 100 UNIT/ML 3ML SQ SCH ×3 (06:15→21:00)
[2019-12-03] MEDS: ALBUTEROL SULFATE 0.083% 2.5 MG/3 ML INH IH SCH ×3 (06:20→21:11)
[2019-12-03] MEDS ORDERED: IRON SUCROSE COMPLEX 100 MG in SODIUM CHLORIDE 0.9% 50 ML IV SCH (09:00)
[2019-12-03 09:06] VITALS: BP 174/79
[2019-12-03] MEDS: IRON SUCROSE COMPLEX 100 MG in SODIUM CHLORIDE 0.9% 50 ML IV SCH (09:54)
[2019-12-03] MEDS ORDERED: POTASSIUM CHLORIDE 20 MEQ ERTAB PO SCH (12:45)
[2019-12-03] MEDS ORDERED: AMLODIPINE BESYLATE 5 MG TAB PO SCH (12:45)
[2019-12-03 13:46] VITALS: BP 164/75
[2019-12-03] MEDS: CEFTRIAXONE SODIUM 1 GM IVP SCH (14:20)
[2019-12-03] MEDS: LORAZEPAM 2 MG/ML 1 ML VIAL IVP PRN (15:34)
[2019-12-03 16:13] VITALS: BP 184/72
--- NOTE | 2019-12-03 17:01 | NUR ---
REFERRAL TO [facility], REC'D MARYANN SENT FACE SHEET TO [facility] TO SEE IF IN NETWORK . RECD CALL BACK THAT THEY CANNOT TAKE ANYMORE OXYGEN PATIENTS- OUT OF CONCENTRATORS. KIRILL DON TO FOR FOLLOW UP IN AM
[2019-12-03 19:43] VITALS: BP 156/62
[2019-12-04] VITALS (7 sets, daily range): BP systolic 146–184; BP diastolic 66–81
[2019-12-04] MEDS: DEXTROSE 50%-WATER 25 GM/50 ML VIAL IV SCH (00:45)
[2019-12-04] MEDS: SODIUM POLYSTYRENE SULFONATE 15 GM/60 ML ML PO SCH (03:15)
[2019-12-04 04:15] LABS: HEMATOCRIT 29.7 % (36-48); MEAN CORPUSCULAR HEMOGLOBIN 29.1 pg (27.0-33.0); MEAN CORPUSCULAR VOLUME 90.8 fL (79-99); PLATELET COUNT (AUTO) 283 K/uL (130-400); RED BLOOD CELL COUNT(AUTO) 3.27 MIL/uL (4.00-5.50); RED CELL DISTRIBUTION WIDTH 13.6 % (11.0-15.5); WHITE BLOOD COUNT (AUTO) 11.1 K/uL (4.8-10.8)
[2019-12-04 04:42] LABS: PHOSPHORUS 4.6 mg/dL (2.5-4.9); POTASSIUM 3.5 mmol/L (3.5-5.1)
[2019-12-04 05:29] LABS: EOSINOPHILS % (MANUAL) 3 % (1-6); LYMPHOCYTES % (MANUAL) 11 % (22-44); MAN.DIFF COMMENT-IMPRESSION MANUAL DIFFERENTIAL; MONOCYTES % (MANUAL) 7 % (2-9); SEGMENTED NEUTROPHILS % 79 % (40-70)
[2019-12-04 05:30] LABS: PLATELET MORPHOLOGY COMMENT ADEQUATE
[2019-12-04] MEDS: INSULIN HUMULIN R 100 UNIT/ML 3ML SQ SCH ×4 (06:16→21:00)
[2019-12-04] MEDS: ALBUTEROL SULFATE 0.083% 2.5 MG/3 ML INH IH SCH ×3 (06:30→21:21)
[2019-12-04] MEDS: IRON SUCROSE COMPLEX 100 MG in SODIUM CHLORIDE 0.9% 50 ML IV SCH (09:00)
[2019-12-04] MEDS ORDERED: POTASSIUM CHLORIDE 20 MEQ ERTAB PO SCH (10:01)
[2019-12-04] MEDS: AMLODIPINE BESYLATE 5 MG TAB PO SCH (11:36)
[2019-12-04] MEDS: CEFTRIAXONE SODIUM 1 GM IVP SCH (14:00)
--- NOTE | 2019-12-04 14:15 | NUR ---
PIVs X2 INFILTRATED THIS A.M. WITH DISCHARGE ORDERS. PT REFUSES I.V. PT AWAITING O2 SET UP. WILL RESTART IV NEEDED IF PT OKAYS. WILL CONTINUE TO MONITOR.
--- NOTE | 2019-12-04 17:02 | NUR ---
CM NOTE NEW REFERRAL FOR HOME OXYGEN. [facility] DME IN NETWORK. CLINICAL PACKET FAXED AND CONFIRMED RECEIVED. OFFICE CALLED, OFFICE CLOSED SINCE AFTER 5PM. WILL FOLLOW UP FOR OXYGEN REFERRAL IN AM. PRIMARY NURSE, LALA ANN CALLED AND MADE AWARE.
[2019-12-05] MEDS: DEXTROSE 50%-WATER 25 GM/50 ML VIAL IV SCH (00:45)
[2019-12-05] MEDS: SODIUM POLYSTYRENE SULFONATE 15 GM/60 ML ML PO SCH (03:15)
[2019-12-05 04:00] VITALS: BP 164/79
[2019-12-05] MEDS: ALBUTEROL SULFATE 0.083% 2.5 MG/3 ML INH IH SCH ×2 (06:46→14:24)
[2019-12-05] MEDS: INSULIN HUMULIN R 100 UNIT/ML 3ML SQ SCH (07:21)
[2019-12-05 08:00] VITALS: BP 154/75
[2019-12-05] MEDS: AMLODIPINE BESYLATE 5 MG TAB PO SCH ×2 (09:00→10:06)
[2019-12-05 12:00] VITALS: BP 163/76
== END 2019-12-05 15:15 | disposition home or self-care (01) | DRG 194 ==
LOC: EDH 09:16 → EDHIP 09:17 → 2AH 19:25 → 2CV 11-30 03:54 → 2BH 11-30 15:30 → 3BH 12-01 11:34
PROVIDERS: ADMIT Internal Medicine Nephrology; ATTEND Internal Medicine Nephrology
DX: I11.0 Hypertensive heart disease with heart failure (principal); N17.9 Acute kidney failure, unspecified; E66.2 Morbid (severe) obesity with alveolar hypoventilation; E11.9 Type 2 diabetes mellitus without complications; E78.5 Hyperlipidemia, unspecified; D64.9 Anemia, unspecified; I50.33 Acute on chronic diastolic (congestive) heart failure; Z99.81 Dependence on supplemental oxygen; E87.5 Hyperkalemia; N39.0 Urinary tract infection, site not specified; I25.10 Atherosclerotic heart disease of native coronary artery without angina pectoris; R09.02 Hypoxemia; F32.9 Major depressive disorder, single episode, unspecified; Z68.41 Body mass index [BMI] 40.0-44.9, adult
CPT/HCPCS: 36415; 36600; 71045; 80048; 80053; 81001; 82435; 82803; 82947; 82948; 83540; 83550; 83605; 83690; 83735; 83880; 84100; 84132; 84295; 84484; 85018; 85025; 85027; 85378; 85610; 85730; 87040; 87088; 87804; 87880; 93005; 93306; 93356; 94640; 94760; 99291; G0378; J0610; J0696; J1756; J1815; J1940; J2060; J3490; J7030; J7070

== ENCOUNTER 2020-07-09 12:45 | Emergency (ER) | payer MEDICAID ==
[~2020-07-09 12:45] MED LIST changes: +ACET650T9 PO; -AMLO-258 PO; -AMOX-429 PO; -DIPH1TAB24 PO; -ESOM40CA54 PO; +GABA-529 PO; -LEVO150T11 PO; +LEVO200T10 PO; +LISI-613 PO; +MIRT30TA2 PO; -TRAZ-187 PO
[2020-07-09 13:37] LABS: BASOPHILS % (AUTO) 0.8 % (0.0-5.0); EOSINOPHILS % (AUTO) 3.5 % (0.0-8.0); LYMPHOCYTES % (AUTO) 26.9 % (21.0-51.0); MEAN CORPUSCULAR HEMOGLOBIN 28.5 pg (27.0-33.0); MEAN CORPUSCULAR HGB CONC 32.1 g/dL (32.0-36.0); MEAN CORPUSCULAR VOLUME 88.6 fL (79-99); MONOCYTES % (AUTO) 8.4 % (3.0-13.0); PLATELET COUNT (AUTO) 249 K/uL (130-400); RED BLOOD CELL COUNT(AUTO) 3.16 MIL/uL (4.00-5.50); RED CELL DISTRIBUTION WIDTH 14.3 % (11.0-15.5); WHITE BLOOD COUNT (AUTO) 8.6 K/uL (4.8-10.8)
[2020-07-09 13:42] LABS: CREATININE 2.3 mg/dL (0.5-1.5); POTASSIUM 5.2 mmol/L (3.5-5.1)
[2020-07-09 13:43] LABS: APPEARANCE,URINE Clear (CLEAR); BILIRUBIN,URINE Negative (NEGATIVE); COLOR,URINE Yellow (YELLOW); GLUCOSE, URINE (UA) Negative (NEGATIVE); KETONES,URINE Negative (NEGATIVE); LEUKOCYTE ESTERASE ,URINE Negative (NEGATIVE); NITRATE,URINE Negative (NEGATIVE); OCCULT BLOOD,URINE Negative (NEGATIVE); PROTEIN,URINE POS 1+ mg/dL (NEGATIVE); UROBILINOGEN,URINE 0.2 mg/dL (0.2-1.0)
[2020-07-09 13:46] LABS: ALBUMIN 2.9 g/dL (3.5-5.0); BILIRUBIN,TOTAL 0.1 mg/dL (0.2-1.0); TOTAL PROTEIN, SERUM 6.7 g/dL (6.0-8.3)
[2020-07-09 13:47] LABS: BACTERIA,URINE Rare /HPF (None Seen); RBC,URINE 0-1 /HPF (0-1); WBC,URINE 0-1 /HPF (0-1)
[2020-07-09 13:48] LABS: MUCUS,URINE Few LPF (None Seen); SQUAMOUS EPITHELIAL CELL,UR Rare /HPF (0-2)
== END 2020-07-09 14:55 | disposition home or self-care (01) ==
LOC: EDH 12:45
DX: I13.0 Hypertensive heart and chronic kidney disease with heart failure and stage 1 through stage 4 chronic kidney disease, or unspecified chronic kidney disease (principal); E11.22 Type 2 diabetes mellitus with diabetic chronic kidney disease; D64.9 Anemia, unspecified; N18.9 Chronic kidney disease, unspecified; E78.5 Hyperlipidemia, unspecified; I25.10 Atherosclerotic heart disease of native coronary artery without angina pectoris; I50.9 Heart failure, unspecified; Z90.49 Acquired absence of other specified parts of digestive tract; Z87.891 Personal history of nicotine dependence
CPT/HCPCS: 36415; 71045; 80053; 81001; 85025; 87804; 93005